=== PATIENT | female | born 2000 | race Caucasian/White ===

== ENCOUNTER 2022-07-10 21:17 | Emergency (ER) | payer OTHER ==
[~2022-07-10] VITALS: Ht 162.6 cm; Wt 54.9 kg
[2022-07-10] MEDS ORDERED: METOCLOPRAMIDE HCL 10 MG/2 ML VIAL IV ONE (21:30)
[2022-07-10] MEDS ORDERED: IV NS 0.9% 1,000 ML BAG IV ONE (21:30)
[2022-07-10] MEDS ORDERED: METOCLOPRAMIDE HCL 10 MG/2 ML VIAL ONE (22:07)
--- NOTE | 2022-07-10 22:09 | NUR ---
19G ESTABLISHED AT [facility]. BLOOD DRAWN AND SENT TO LAB.
--- NOTE | 2022-07-10 22:12 | NUR ---
US TECH AT BEDSIDE
--- NOTE | 2022-07-10 22:13 | NUR ---
BLOOD COLLECTED AND SENT TO LAB
[2022-07-10] MEDS ORDERED: MORPHINE SULFATE INJ 2 MG/ML DISP.SYRIN IV ONE (22:30)
[2022-07-10 22:33] LABS: BASOPHILS % (AUTO) 0.1 % (0.0-2.0); HEMATOCRIT 40 % (33-45); HEMOGLOBIN 13.9 g/dL (11.5-14.8); LYMPHOCYTES # (AUTO) 0.8 K/uL (0.8-4.8); MEAN CORPUSCULAR HGB CONC 34 g/dl (31.0-36.0); MEAN CORPUSCULAR VOLUME 89 fL (82-100); MONOCYTES # (AUTO) 0.4 K/uL (0.1-1.30); MONOCYTES % (AUTO) 2.9 % (2.0-12.0); NEUTROPHILS # (AUTO) 12.3 K/uL (1.8-8.9); PLATELET COUNT (AUTO) 310 K/uL (150-450); RED BLOOD CELL COUNT(AUTO) 4.56 MIL/uL (4.0-5.2); WHITE BLOOD COUNT (AUTO) 13.6 K/uL (4.3-11.0)
[2022-07-10] MEDS ORDERED: MORPHINE SULFATE INJ 2 MG/ML DISP.SYRIN ONE (22:46)
[2022-07-10 22:51] LABS: CALCIUM, SERUM 9.5 mg/dL (8.5-10.1); CREATININE 0.8 mg/dL (0.6-1.3); POTASSIUM 3.4 mmol/L (3.5-5.1)
[2022-07-10 23:48] LABS: ALBUMIN 4.2 g/dL (3.4-5.0); BILIRUBIN,DIRECT 0.2 mg/dL (0.0-0.2); BILIRUBIN,TOTAL 0.6 mg/dL (0.2-1.0); TOTAL PROTEIN, SERUM 8.2 g/dL (6.4-8.2)
[2022-07-11 00:33] LABS: BILIRUBIN,URINE NEGATIVE (NEGATIVE); COLOR,URINE YELLOW (YELLOW); LEUKOCYTE ESTERASE ,URINE NEGATIVE (NEGATIVE); NITRITE, URINE NEGATIVE (NEGATIVE); PH,URINE 6.5 (5.0-8.0); PROTEIN,URINE 30 mg/dl (NEGATIVE); UGLUCOSE NEGATIVE (NEGATIVE); UROBILINOGEN,URINE 0.2 EU/dL (0.2)
[2022-07-11 00:36] LABS: BACTERIA,URINE Few /HPF (None Seen); RBC,URINE 0-2 /HPF (0-2); SQUAMOUS EPITHELIAL CELL,UR Few /HPF (None Seen); WBC,URINE 0-2 /HPF (0-3)
[2022-07-11 01:18] VITALS: BP 108/63
--- NOTE | 2022-07-11 01:18 | NUR ---
IV removed. Catheter intact and site benign. Pressure and 4x4 applied to site. No bleeding noted.Patient discharged to home in stable condition. Written and verbal after care instructions given. Patient verbalizes understanding of instruction.
== END 2022-07-11 01:19 | disposition home or self-care (01) ==
LOC: ER 21:19
DX: O26.891 Other specified pregnancy related conditions, first trimester (principal); K80.50 Calculus of bile duct without cholangitis or cholecystitis without obstruction; R10.13 Epigastric pain; R10.11 Right upper quadrant pain; Z3A.01 Less than 8 weeks gestation of pregnancy
CPT/HCPCS: 99284; 76705; 96374; 96361; 96375; 76856; 85025; 80048; 83690; 80076; 81001; 36415 ×2; 84702; J2765; J7030; J2270

== ENCOUNTER 2022-07-11 06:23 | Emergency (ER) | payer OTHER ==
[~2022-07-11] VITALS: Ht 160 cm; Wt 45.4 kg
[2022-07-11 07:05] VITALS: BP 126/75
[2022-07-11] MEDS ORDERED: PYRIDOXINE HCL 50 MG TABLET PO ONE (07:30)
[2022-07-11] MEDS ORDERED: POTASSIUM CHLORIDE 20 MEQ TAB.PRT.SR PO ONE ×2 (07:30→07:41)
[2022-07-11] MEDS ORDERED: ONDANSETRON 4 MG TAB.RAPDIS SL ONE (07:30)
[2022-07-11] MEDS ORDERED: HYDROCODONE/APAP 5/325MG TABLET PO ONE (07:30)
[2022-07-11] MEDS ORDERED: HYDROCODONE/APAP 5/325MG TABLET ONE (07:41)
[2022-07-11] MEDS ORDERED: ONDANSETRON 4 MG TAB.RAPDIS ONE (07:41)
--- NOTE | 2022-07-11 07:56 | NUR ---
Patient discharged to home in stable condition. Written and verbal after care instructions given. Patient verbalizes understanding of instruction.
--- NOTE | 2022-07-11 11:00 | NUR ---
MARIELENA met with pt. at bedside. The pt. is a 22 year old female who presents to the ED due to nausea and was diagnosed with a 6.7-week as well as cholelithiasis and biliary colic. The pt. is alert & oriented x 4 and makes good eye contact. The pt. stated she lives with her boyfriend and will return there. Pt. could not provide address and stated her boyfriend was picking her up. MARIELENA provided pt. with prenancy and post- resources: ADOPTION: [phone] Adoption Network Law Julian [employer] Anabelle [employer] [phone] Chloé Jean Adoption BREAST FEEDING: [phone] [phone] My Nursing [employer] Mobile Service [employer] [facility] FLAVOR EXTRACTOR: Child Resource Center [facility] Preschool LAUP.net [employer] CHILD SUPPORT: [facility] www.cssd.[facility].gov [phone] www.childsup.[place].gov EDUCATION: [employer] Contact your home school for independent studies programs [employer] ; [employer] [phone] [phone] [facility] [employer] IMMIGRATION: [employer] [place] INSURANCE: Department of Public Top Hat Body Maker [facility] www.[facility].ca.gov or [place] [phone] [phone] [phone] www.bantry.org/human-services- agency/[facility] Affordable Care Program www.healthcare.gov [place] State Disability/Family Leave www.martha.[place].gov/disability/ MATERNITY HOUSING: [place] (teens) 18 years + [facility] Danelle [phone] [phone] [phone] PARENTING CLASSES: [facility] [employer] [phone] Friends of the [phone] [phone] [place] [employer] [place] [facility] Child/Family Center in [place] [facility] PATERNITY TESTING: [phone] [phone] [facility] Electrician Master Offices www.[facility].gov / CARE: [facility] Support [place] office [phone] [phone] Care.IntenseDebate all types of support [phone] PREPARED CHILDBIRTH: [phone] [facility] SUBSTANCE ABUSE SUPPORT: [phone] [phone] [facility] [place] PROGRAM: Provides supplementary food cards for women and children under 5 years of age. SFV: [place]: [place]: [place]: OTHER RESOURCES: [facility] provides food, clothing, furniture, medical care, etc., to families and children living in the [place]. [facility] Family Rescue Cent. Safety Belt [employer]- car seat discounts Multiples of Jackie Support www.nomotc.org Food Pantries www.Bathrooms.com.org www.healthycity.org Cord Banking: http://americanpregnancy.org/eqqvr-uiv-rhldk/yrsd-eymmd-edjfdwc/
== END 2022-07-11 07:56 | disposition home or self-care (01) ==
LOC: ER 06:23
DX: O26.899 Other specified pregnancy related conditions, unspecified trimester (principal); K80.50 Calculus of bile duct without cholangitis or cholecystitis without obstruction; R10.11 Right upper quadrant pain; Z3A.00 Weeks of gestation of pregnancy not specified
CPT/HCPCS: 99284; Q0162

== ENCOUNTER 2022-07-12 13:40 | Emergency (ER) | payer OTHER ==
[~2022-07-12] VITALS: Ht 162.6 cm; Wt 49.9 kg
--- NOTE | 2022-07-12 13:58 | NUR ---
Nausea/vomiting. Feel weak- was seen here yesterday for same. Pt vitals are within normal limits. awaiting md bermudez.
[2022-07-12 14:00] VITALS: BP 112/52
--- NOTE | 2022-07-12 15:24 | NUR ---
Pt eloped from [facility] emergency room, she walked past the nurses station and did not wish to continue care. Pt left the department in stable condition.
[2022-07-12 15:26] LABS: BASOPHILS % (AUTO) 0.2 % (0.0-2.0); EOSINOPHILS % (AUTO) 0.1 % (0.0-6.0); HEMATOCRIT 40 % (33-45); HEMOGLOBIN 13.6 g/dL (11.5-14.8); LYMPHOCYTES # (AUTO) 1.3 K/uL (0.8-4.8); LYMPHOCYTES % (AUTO) 10.6 % (20.0-44.0); MEAN CORPUSCULAR HGB CONC 34 g/dl (31.0-36.0); MEAN CORPUSCULAR VOLUME 90 fL (82-100); MONOCYTES # (AUTO) 0.5 K/uL (0.1-1.30); MONOCYTES % (AUTO) 4.3 % (2.0-12.0); NEUTROPHILS # (AUTO) 10.5 K/uL (1.8-8.9); NEUTROPHILS % (AUTO) 84.8 % (43.0-81.0); PLATELET COUNT (AUTO) 297 K/uL (150-450); RED BLOOD CELL COUNT(AUTO) 4.42 MIL/uL (4.0-5.2); WHITE BLOOD COUNT (AUTO) 12.4 K/uL (4.3-11.0)
[2022-07-12] MEDS ORDERED: MORPHINE SULFATE INJ 2 MG/ML DISP.SYRIN IV ONE (15:30)
[2022-07-12] MEDS ORDERED: ONDANSETRON HCL/PF 4 MG/2 ML VIAL IVP ONE (15:30)
[2022-07-12] MEDS ORDERED: IV NS 0.9% 1,000 ML BAG IV ONE (15:30)
[2022-07-12 15:40] LABS: CALCIUM, SERUM 9.1 mg/dL (8.5-10.1); CREATININE 0.8 mg/dL (0.6-1.3)
[2022-07-12 15:48] LABS: ALBUMIN 4.3 g/dL (3.4-5.0); BILIRUBIN,DIRECT 0.2 mg/dL (0.0-0.2); BILIRUBIN,TOTAL 0.7 mg/dL (0.2-1.0); TOTAL PROTEIN, SERUM 8.1 g/dL (6.4-8.2)
== END 2022-07-12 15:35 | disposition left against medical advice (07) ==
LOC: ER 13:59
DX: O26.891 Other specified pregnancy related conditions, first trimester (principal); R11.2 Nausea with vomiting, unspecified; K80.50 Calculus of bile duct without cholangitis or cholecystitis without obstruction; Z3A.00 Weeks of gestation of pregnancy not specified
CPT/HCPCS: 36415; 80048-TC; 80076-TC; 83690-TC; 85025-TC